=== PATIENT | male | born 1970 | race African-American/Black ===

== ENCOUNTER 2021-07-04 19:57 | Emergency (ER) | payer OTHER ==
[~2021-07-04] VITALS: Ht 182.9 cm; Wt 87.3 kg
[2021-07-04] MEDS ORDERED: CYCLOBENZAPRINE HCL 10 MG TABLET PO ONE (21:15)
[2021-07-04] MEDS ORDERED: LIDOCAINE 5% TRANSDERMAL PATCH TD ONE (21:15)
[2021-07-04] MEDS ORDERED: KETOROLAC TROMETHAMINE 60 MG/2 ML VIAL IM ONE (21:15)
[2021-07-04 21:57] VITALS: BP 129/73
[2021-07-04] MEDS ORDERED: CYCL-448 PO (21:58)
[2021-07-04] MEDS ORDERED: IBUP-2070 PO (21:58)
== END 2021-07-04 22:07 | disposition home or self-care (01) ==
LOC: EMS 20:03
DX: M54.50 Low back pain, unspecified (principal); M62.838 Other muscle spasm
CPT/HCPCS: 96372; 99283; J1885